=== PATIENT | female | born 1950 | race Caucasian/White ===

== ENCOUNTER → 2021-05-12 | Outpatient (CLI) | payer MEDICARE ==
[~2021-05-12] MED LIST: ALBU2TAB42 PO; APIX5TAB PO; ASCO500 PO; ATOR20TA86 PO; FLUT16H NASAL; FURO40 PO; LORA10TA7 PO; METO50 PO; OMEG-135 PO; POTA20TA83 PO
== END | disposition home or self-care (01) ==
LOC: RADMN 11:57
PROVIDERS: ATTEND Internal Medicine Critical Care Medicine
DX: R05 Cough (principal); I51.7 Cardiomegaly
CPT/HCPCS: 71046

== ENCOUNTER → 2021-05-12 | Outpatient (CLI) | payer MEDICARE ==
[~2021-05-12] VITALS: Ht 162.6 cm; Wt 84.1 kg
[2021-05-12 11:08] VITALS: BP 127/83
== END | disposition home or self-care (01) ==
LOC: SRCNTR 10:43
PROVIDERS: ATTEND Internal Medicine Critical Care Medicine
DX: R05 Cough (principal); I10 Essential (primary) hypertension; I48.91 Unspecified atrial fibrillation; E78.5 Hyperlipidemia, unspecified; J30.9 Allergic rhinitis, unspecified; R06.00 Dyspnea, unspecified
CPT/HCPCS: G0463

== ENCOUNTER → 2021-07-03 | Outpatient (CLI) | payer MEDICARE ==
[2021-07-03 10:18] VITALS: BP 136/89
== END | disposition home or self-care (01) ==
LOC: SRCNTR 10:06
PROVIDERS: ATTEND Internal Medicine
DX: J45.909 Unspecified asthma, uncomplicated (principal); I48.91 Unspecified atrial fibrillation; I10 Essential (primary) hypertension; E78.5 Hyperlipidemia, unspecified
CPT/HCPCS: G0463

== ENCOUNTER → 2023-01-19 | Outpatient (CLI) | payer MEDICARE, OTHER ==
[~2023-01-19] VITALS: Ht 162.6 cm; Wt 89.5 kg
[~2023-01-19] MED LIST changes: +ALBU2 PO; -ALBU2TAB42 PO; +AMIO200T68 PO; +AMLO-257 PO; +ASPI-1450 PO; +ATOR40TA28 PO; +CLOP75TA60 PO; -FLUT16H NASAL; +FLUT16SP NASAL; +METO25 PO; +POTA-206 PO; -POTA20TA83 PO; +SACU1TAB PO
[2023-01-19 09:48] VITALS: BP 93/51
== END | disposition home or self-care (01) ==
LOC: SRCNTR 09:35
PROVIDERS: ATTEND Internal Medicine
DX: J45.909 Unspecified asthma, uncomplicated (principal); I50.9 Heart failure, unspecified; I48.91 Unspecified atrial fibrillation; G47.33 Obstructive sleep apnea (adult) (pediatric); Z86.73 Personal history of transient ischemic attack (TIA), and cerebral infarction without residual deficits
CPT/HCPCS: G0463; Z7500

== ENCOUNTER → 2023-05-18 | Outpatient (CLI) | payer MEDICARE, OTHER ==
[~2023-05-18] VITALS: Ht 162.6 cm; Wt 88.0 kg
[~2023-05-18] MED LIST changes: -ALBU2 PO; -APIX5TAB PO; -ASCO500 PO; -ATOR20TA86 PO; -FLUT16SP NASAL; -LORA10TA7 PO; -METO50 PO; -OMEG-135 PO; -POTA-206 PO
[2023-05-18 09:10] VITALS: BP 99/56; PULSE 63; RESP 16; TEMP 97.7; O2SAT 97
== END | disposition home or self-care (01) ==
LOC: SRCNTR 08:56
PROVIDERS: ATTEND Internal Medicine
DX: R91.8 Other nonspecific abnormal finding of lung field (principal); J18.8 Other pneumonia, unspecified organism
CPT/HCPCS: G0463; Z7500